=== PATIENT | female | born 1960 | race Caucasian/White ===

== ENCOUNTER 2019-01-15 05:37 | Emergency (ER) | payer OTHER ==
[2019-01-15 06:17] LABS: Basophils # (Auto) 0.1 K/mm3 (0.0-0.1); Basophils % (Auto) 1.1 % (0.0-1.8); Eosinophils # (Auto) 0.3 K/mm3 (0.0-0.4); Eosinophils % (Auto) 3.6 % (0.0-4.3); Hematocrit 41.6 % (30.3-42.9); Hemoglobin 14.2 gm/dl (10.1-14.3); Lymphocytes # (Auto) 3.4 K/mm3 (1.2-5.4); Lymphocytes % (Auto) 35.7 % (13.4-35.0); Mean Corpuscular HGB Conc 34 % (30-34); Mean Corpuscular Volume 86 fl (79-97); Monocytes # (Auto) 0.7 K/mm3 (0.0-0.8); Monocytes % (Auto) 7.8 % (0.0-7.3); Platelet Count 339 K/mm3 (140-440); Red Blood Count 4.83 M/mm3 (3.65-5.03); Red Cell Distribution Width 13.4 % (13.2-15.2)
[2019-01-15 06:19] LABS: Bilirubin,Urine NEG (Negative); Blood,Urine SM (Negative); Color,Urine Yellow (Yellow); Protein,Urine <15 mg/dL mg/dL (Negative); Urobilinogen,Urine < 2.0 mg/dL (<2.0)
[2019-01-15 06:35] LABS: Alanine Aminotransferase 74 units/L (7-56); Albumin 4.6 g/dL (3.9-5); BUN/Creatinine Ratio 19; Blood Urea Nitrogen 17 mg/dL (7-17); Calcium 9.9 mg/dL (8.4-10.2); Hemolysis Index 7
[2019-01-15] MEDS ORDERED: ULTRAM PO ONE (07:39)
--- NOTE | 2019-01-15 08:13 | Emergency Department Report ---
ED Abdominal Pain HPI - General Chief Complaint: Dizziness Stated Complaint: RIGHT SIDE PAIN Time Seen by Provider: 01/15/19 07:18 Source: patient Mode of arrival: Ambulatory Limitations: No Limitations - History of Present Illness Initial Comments: This is a 58-year-old female presents to ED complaining of right sided flank and back pain for the past 3 weeks. Patient states she has had this pain 3 weeks ago and has been constant since then. Patient states that she does have a funny smelling urine but no dysuria, nausea, vomiting or diarrhea. Patient states that. Is Worsened with Palpation. She Denies Any Injuries, Trauma. Or Altered. Patient Also States She Is Out Of Her Medicines and Has Been Having Some Dizziness for the past 3-4 Days. Patient Denies Any Syncopal Episode. She States That She Has a History of Vertigo MD Complaint: flank pain -: Gradual, week(s) (3) Radiation: back Migration to: no migration Severity: moderate Severity scale (0 -10): 6 Quality: aching Consistency: constant Associated Symptoms: denies other symptoms. denies: nausea, vomiting, diarrhea, constipation - Related Data Previous Rx's Medication Instructions Recorded Last Taken Type Ibuprofen [Motrin] 400 mg PO Q8H PRN #30 tablet 10/18/15 Unknown Rx Nitrofurantoin Karnes/M-Cryst 100 mg PO Q12HR #14 capsule 10/18/15 Unknown Rx [Macrobid CAP] Cyclobenzaprine [Flexeril] 10 mg PO QHS PRN #20 tablet 01/15/19 Unknown Rx Ibuprofen [Motrin] 600 mg PO Q8H #30 tablet 01/15/19 Unknown Rx Meclizine [Antivert] 25 mg PO TID PRN #30 tablet 01/15/19 Unknown Rx Allergies Allergy/AdvReac Type Severity Reaction Status Date / Time No Known Allergies Allergy Unverified 08/23/14 12:32 ED Review of Systems ROS: Stated complaint: RIGHT SIDE PAIN Other details as noted in HPI Comment: All other systems reviewed and negative ED Past Medical Hx - Past Medical History Previous Medical History?: Yes Hx Hypertension: Yes Hx Diabetes: Yes - Surgical History Past Surgical History?: Yes Additional Surgical History: HYSTERECTOMY. BACK SURGERY. BILATERAL HAND/ CARPAL TUNEL. BOTH ELBOWS. LEFT KIDNEY REMOVED - Social History Smoking Status: Never Smoker Substance Use Type: None - Medications Home Medications: Home Medications Medication Instructions Recorded Confirmed Last Taken Type Ibuprofen [Motrin] 400 mg PO Q8H PRN #30 tablet 10/18/15 Unknown Rx Nitrofurantoin Karnes/M-Cryst 100 mg PO Q12HR #14 capsule 10/18/15 Unknown Rx [Macrobid CAP] Cyclobenzaprine [Flexeril] 10 mg PO QHS PRN #20 tablet 01/15/19 Unknown Rx Ibuprofen [Motrin] 600 mg PO Q8H #30 tablet 01/15/19 Unknown Rx Meclizine [Antivert] 25 mg PO TID PRN #30 tablet 01/15/19 Unknown Rx ED Physical Exam - General Limitations: No Limitations General appearance: alert, in no apparent distress - Head Head exam: Present: atraumatic, normocephalic - Eye Eye exam: Present: normal appearance - ENT ENT exam: Present: mucous membranes moist - Neck Neck exam: Present: normal inspection - Respiratory Respiratory exam: Present: normal lung sounds bilaterally. Absent: respiratory distress, wheezes - Cardiovascular Cardiovascular Exam: Present: regular rate, normal rhythm. Absent: systolic murmur, diastolic murmur, rubs, gallop - GI/Abdominal GI/Abdominal exam: Present: soft, tenderness (to palpation of the right flank/back), normal bowel sounds. Absent: distended - Extremities Exam Extremities exam: Present: normal inspection, full ROM - Back Exam Back exam: Present: normal inspection, full ROM. Absent: tenderness, CVA tenderness (R), CVA tenderness (L) - Neurological Exam Neurological exam: Present: alert, oriented X3, normal gait - Psychiatric Psychiatric exam: Present: normal affect, normal mood - Skin Skin exam: Present: warm, dry, intact, normal color. Absent: rash ED Course Vital Signs 01/15/19 01/15/19 01/15/19 05:41 09:00 09:25 Temperature 97.7 F Pulse Rate 85 110 H Respiratory 18 24 24 Rate Blood Pressure 122/88 Blood Pressure 64/42 [Right] O2 Sat by Pulse 98 Oximetry 01/15/19 11:28 Temperature Pulse Rate 82 Respiratory 20 Rate Blood Pressure Blood Pressure 122/68 [Right] O2 Sat by Pulse 99 Oximetry - Reevaluation(s) Reevaluation #1: Patient started to feel a bit woozy about 25 mins after administration tramadol. Patient states that she has not eating at all on night. She states that she just got off work not to long ago. Patient was then given 1 L of fluids. 01/15/19 10:08 ED Medical Decision Making - Lab Data Result diagrams: 01/15/19 06:00 01/15/19 06:00 - Radiology Data Radiology results: report reviewed, image reviewed - Medical Decision Making 58-year-old female who presents to ED with right flank pain. Labs and within normal limits. Patient received [address] scan shows no acute abdomen. Vital signs are normal patient is in no acute distress Patient reports feeling much better prior to leaving the ER. Critical care attestation.: If time is entered above; I have spent that time in minutes in the direct care of this critically ill patient, excluding procedure time. ED Disposition Clinical Impression: Right flank pain, Abdominal muscle strain Disposition: - TO HOME OR SELFCARE Is pt being admited?: No Does the pt Need Aspirin: No Condition: Stable Instructions: Muscle Strain (ED), Flank Pain (ED) Additional Instructions: Make sure to follow up with the primary care physician as discussed. Take all your medications as you've been prescribed. If you have any worsening symptoms or develop new symptoms please return to ED immediately. Prescriptions: Cyclobenzaprine [Flexeril] 10 mg PO QHS PRN #20 tablet PRN Reason: Muscle Spasm Meclizine [Antivert] 25 mg PO TID PRN #30 tablet PRN Reason: Vertigo Ibuprofen [Motrin] 600 mg PO Q8H #30 tablet Referrals: BI MARTINEZ MD [Primary Care Provider] - 3-5 Days Forms: Accompanied Note, Work/School Release Form(ED) Time of Disposition: 09:17
--- NOTE | 2019-01-15 09:08 | Cat Scan Report ---
CT ABDOMEN AND PELVIS WITHOUT CONTRAST INDICATION: Right back/flank pain. History of left nephrectomy for cancer. COMPARISON: 06/16/2012 CT. FINDINGS: Noncontrast abdomen and pelvis CT performed. LUNG BASES: Slight cardiomegaly. Mild coronary calcifications. No effusions. Slight bibasilar dependent atelectasis. Right hemidiaphragm slightly higher than the left. ABDOMEN: Please note that sensitivity to detect small visceral lesions is limited due to the absence of intravenous or oral contrast. However, extensive diffuse fatty infiltration again noted with mild pericholecystic sparing. Right hepatic lobe 21 cm in midclavicular length. Otherwise grossly unremarkable liver at this time with subtle, approximately 1 cm probable hemangioma within the left hepatic lobe previously as on axial image 60, series 2, not well identified on today's unenhanced exam. Spleen, gallbladder, pancreas, adrenals, nonaneurysmal abdominal aorta with few atherosclerotic aortoiliac calcifications, IVC and the right kidney grossly within normal limits. Left kidney again surgically absent with few stable retroperitoneal surgical clips. No ascites or definite size significant adenopathy. Nonopacified GI tract evaluation limited, though grossly nonobstructive. Normal appendix. Mild stool throughout the colon/possible constipation. Small fat-containing umbilical hernia with a transverse neck of 0.8 cm also again seen. Left lower quadrant abdominal wall post surgical thinning again noted with slight increased fatty prominence at the defect, now approximately 3.7 x 1.4 cm on axial image 113, series 2, previously approximately 2.9 x 1 cm. PELVIS: Uterus again surgically absent with few small pelvic phleboliths. Grossly unremarkable nonopacified urinary bladder. Mild rectosigmoid stool. No free fluid or significant adenopathy. Stable screw anteriorly, extending obliquely into L4 vertebral body and L4-L5 disc maintainers. New/increased, now moderate to severe lower lumbar facet arthropathy as on axial image 115, series 2. Mild multilevel spinal degenerative spurring, greatest lower thoracic. Mild hip degenerative changes, more so right acetabular prominence/overhanging with possible increased propensity for pincer type femoroacetabular impingement. CONCLUSION: No definite acute CT abnormality on this limited, unenhanced exam with various incidental findings, including fatty enlarged liver, stable numerous postsurgical changes including left nephrectomy and involving the left lower quadrant abdominal wall, hysterectomy and lower lumbar spine hardware with increased lower lumbar facet arthropathy, as detailed above. Please correlate. Thank you for the opportunity to participate in this patient's care.
[2019-01-15] MEDS ORDERED: NACL 0.9% 1000 ML 1,000 ML IV ONE (10:04)
[2019-01-15] MEDS ORDERED: NACL 0.9% 1000 ML 1,000 ML ONE (10:04)
[2019-01-15 11:29] VITALS: BP 122/68
== END 2019-01-15 11:28 | disposition home or self-care (01) ==
LOC: ED 05:37
DX: S39.011A Strain of muscle, fascia and tendon of abdomen, initial encounter (principal); R10.9 Unspecified abdominal pain; R42 Dizziness and giddiness; X58.XXXA Exposure to other specified factors, initial encounter; Y93.89 Activity, other specified; Y92.89 Other specified places as the place of occurrence of the external cause; Y99.8 Other external cause status
CPT/HCPCS: 36415; 74176; 80053; 81001; 85025; 96360; 99284; J7030